=== PATIENT | female | born 2000 | race Caucasian/White ===

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

== ENCOUNTER 2021-01-16 16:29 | Inpatient (IN) | payer OTHER ==
[2021-01-16 17:02] LABS: HEMOGLOBIN 12.2 gm/dl (12.3-15.3); RED BLOOD COUNT 3.86 M/UL (4.00-5.10); WHITE BLOOD COUNT 15.3 K/UL (4.5-11.0)
[2021-01-16] MEDS ORDERED: ZOFRAN4 MG PO (17:19)
[2021-01-16] MEDS ORDERED: PRENATAL VITAM1 EAC3 PO (17:19)
[2021-01-17] MEDS ORDERED: INTEGRA CAPSUL1 EACH PO (18:18)
[2021-01-17] MEDS ORDERED: IBUPROFEN600 MG PO (18:18)
[2021-01-17] MEDS ORDERED: COLACE 100MG C100 MG PO (18:18)
[2021-01-18 07:49] LABS: HEMOGLOBIN 11.9 gm/dl (12.3-15.3)
== END 2021-01-19 11:25 | disposition home or self-care (01) | DRG 807 ==
LOC: GENOP 16:29 → OB 16:47
PROVIDERS: Obstetrics & Gynecology; ADMIT Obstetrics & Gynecology
PROC: 0U7C7ZZ Dilation of Cervix, Via Natural or Artificial Opening (ICD-10-PCS; 2021-01-16)
PROC: 10E0XZZ Delivery of Products of Conception, External Approach (ICD-10-PCS; principal; 2021-01-17)
PROC: 10907ZC Drainage of Amniotic Fluid, Therapeutic from Products of Conception, Via Natural or Artificial Opening (ICD-10-PCS; 2021-01-17)
PROC: 3E033VJ Introduction of Other Hormone into Peripheral Vein, Percutaneous Approach (ICD-10-PCS; 2021-01-17)
DX: O36.5930 Maternal care for other known or suspected poor fetal growth, third trimester, not applicable or unspecified (principal); Z37.0 Single live birth; O99.334 Smoking (tobacco) complicating childbirth; F17.210 Nicotine dependence, cigarettes, uncomplicated; Z3A.37 37 weeks gestation of pregnancy
CPT/HCPCS: 36415; 51702; 81001; 85014; 85018; 85025; 90715; J0595; J2405; J2590; J7120